=== PATIENT | female | born 1995 | race Caucasian/White ===

== ENCOUNTER 2016-12-07 01:10 | Emergency (ER) | payer SELFPAY ==
[2016-12-07] MEDS ORDERED: KETOROLAC 60 MG/2 ML VIAL IM ONE (02:06)
[2016-12-07] MEDS ORDERED: DEXAMETHASONE 4 MG/ML VIAL ONE (02:07)
== END 2016-12-07 03:55 | disposition home or self-care (01) ==
LOC: ER 01:10
DX: J03.90 Acute tonsillitis, unspecified (principal); F17.200 Nicotine dependence, unspecified, uncomplicated
CPT/HCPCS: 36415; 86403; 87880; 96372